=== PATIENT | female | born 1945 | race Caucasian/White ===

== ENCOUNTER → 2016-06-10 | Outpatient (CLI) | payer BC ==
[~2016-06-10] MED LIST: CETI10TA84 PO; CYAN500T13 PO
--- NOTE | 2016-06-11 06:01 | PAP/PSG TECHNICIAN REPORT ---
[facility] Color Room Attendant Polysomnogram Report Study name: None Report date: 06/11/2016 Study date: 06/10/2016 Referring Physician: DR. KIMBERLI CUEVA Name: PAULY MICHELE Interpreting Physician: Abdoulaye Cox D.O. Date of : 1945 Color Room Attendant: Blanca House RPSAARON. Sex: Female Age: 70 Study Type: PSG Weight: 172 lbs Height: 70 years, Height 5' 4" BMI: 29.52 Medications: ALEVE 220 MG, CALCIUM +D, CLARITIN, ERYTHROMYCIN 5 MG/GM, MOMETASONE FUROATE 50 MCG/ACT, VIT B-12 Patient History 70 yr-old female here for a baseline/split study. She has a history of witnessed apneas, snoring, and some daytime sleepiness. Her [place] scale is 10. The test was started on room air. ETCO2 testing was not utilized during this study. Room 3 Parameters Monitored NPSG: E1-M2, E2-M1, Fp1-M2, Fp2-M1, F3-M2, F4-M2, F4-M1, C3-M2, C4-M2, C4-M1, O1-M2, O2-M2, O2-M1, T3-M2, T4-M1, P3-M2, P4-M1, CHIN1, CHIN2, HR, EKG, Legs, PFLOW, SNOR, FLOW, CFLOW, Tidal Volume, THOR, ABDO, SpO2, PLTH, CPRESS, ETCO2 Wave, ETCO2, pH Sleep Architecture Sleep Stages Time at Lights Off 10:36:24 PM STAGES Time (min.) TST (%) Time at Lights On 5:20:54 AM Wake 85.0 -- Total Recording Time (TRT) 404.50 min. N1 55.5 17 Total Sleep Period (TSP) 362.5 min. N2 184.0 58 Total Sleep Time (TST) 319.5min. N3 34.5 11 Awake Time 85.0 min. REM 45.5 14 Wake after Sleep Onset 43.0 min. Sleep Efficiency (SE) 79 % Sleep Onset Latency (JHONY) 42.0 min. Number of Stage 1 Shifts None Awakenings 21 Stage Changes 105 Number of REM periods 7 REM 45.5 14 REM Latency 52.5 min. NREM 274.0 86 Body Position Analysis Supine Right Left Side Prone Vertical Total Sleep Time (min.) 115.6 110.0 135.5 245.53 0.0 0.0 Total Sleep Time (%) 23% 34% 42% 77 0% N/A% Total Sleep Time REM (min.) 20.5 16.0 9.0 None 0.0 0.0 Total Sleep Time NREM (min.) 53.5 94.0 126.5 None 0.0 0.0 Intermittent Wake (min.) 41.7 16.5 26.8 None 0.0 0.0 Total Sleep Period (%) 21% None None None None None Arousals Myoclonus (PLM) * Events Count Index Events Count Index Spontaneous 21 4 Events Awake (PLMW) 119 84.0 Respiratory 23 4.3 Events Asleep w/ Arousal (PLMA) 48 9.0 PLM 48 9 Events Asleep w/o Arousal (PLMS) 175 32.9 Snoring 6 1 Total Asleep 223 41.9 Total 98 18 Total 342 51 Respiratory Analysis * CA OA MA CH H RERA Total Count 0 2 0 0 29 12 31 Index 0.0 0.4 0.0 0 5.4 2 8.1 Mean Duration 0.0 22.1 0.0 0.00 24.0 17.6 22.1 Longest Duration 0.0 26.3 0.0 0.00 0.0 21.3 54.7 Respiratory Event Summary Total Supine ~Supine Right Left Prone REM NREM Apneas Count 2 2 0 0 0 N/A 1 1 Index 0.4 2 0 0.0 0.0 N/A 1 0 Hypopneas (4% Desat) Count 29 24 5 5 0 N/A 15 14 Index 5.4 19.5 1 2.7 0.0 N/A 19.8 3.1 Apneas & All Hypopneas Count 31 26 5 5 0 N/A 16 15 Index 5.8 21 1 3 0 N/A 21.1 3.3 Respiratory Events (Housekeeping Attendant+All Hyp+RERA) Count 31 33 10 5 5 N/A 16 15 Index 8.1 27 2 2.7 2.2 N/A 23.7 5.5 Respiratory Related Arousal Count 23 33 7 2 5 N/A 6 17 Index 4.3 13 2 1 2 N/A 8 4 Snoring Analysis Supine Right Left Prone REM NREM Total Snore duration 7.7 min Snores count 110 17 168 N/A 28 267 295 Snore mean duration 1.6 Sec Snores index 89 9 74 N/A 36.9 58.5 55.4 TST with snoring (%) 2.4% Desaturation Event Summary: Minimum %SpO2 Event Count Mean/Min/Max Duration(sec.) Desaturation Index % Time In Bed > 90 32 31.8 / 8.0 / 56.0 17.6 27.3 86 - 90 31 34.0 / 8.8 / 60.0 6.6 70.6 81 - 85 2 18.6 / 13.8 / 23.5 14.5 2.1 76 - 80 0 N/A 0.0 0.0 71 - 75 0 N/A 0.0 0.0 66 - 70 0 N/A 0.0 0.0 61 - 65 0 N/A 0.0 0.0 56 - 60 0 N/A 0.0 0.0 51 - 55 0 N/A 0.0 0.0 < 50 0 N/A 0.0 0.0 Total REM NREM Awake <50% 0.0 min. 0.0 min. 0.0 min. 0.0 min. 51 - 60% 0.0 min. 0.0 min. 0.0 min. 0.0 min. 61 - 70% 0.0 min. 0.0 min. 0.0 min. 0.0 min. 71 - 80% 0.0 min. 0.0 min. 0.0 min. 0.0 min. 81 - 90% 290.9 min. 33.7 min. 214.1 min. 43.1 min. 91 - 100% 109.1 min. 11.8 min. 59.9 min. 37.4 min. Average 90 89 89 91 Minimum SpO2 81 81 84 86 Desaturation Event Index 7.4 25.1 4.2 9.9 # Desat. Events below 89% 40 18 16 6 Time(%) with Saturation below 89% 20.7 4.4 15.1 1.2 Time(min.) with Saturation below 89% 82.9 17.8 60.3 4.8 Time (mins) REM (mins) NREM (mins) % of TST SpO2 Below 90% 36 18 N18 52.0 SpO2 Below 88% 20 0 0 12 Heart Rate Analysis Min (bpm) Max (bpm) Average (bpm) Awake 52 91 68 NREM 51 82 60 REM 54 89 64 Overall 51 89 61 Supplemental O2 Values Minimum O2 level: None Value Start Time End Time Color Room Attendant Comments Ms. Michele slept in the right, left, and supine positions. No cardiac arrhythmias were noted. PLMs were noted. No bruxism noted. Snoring was noted and scored as a 2 on a scale of 1 through 5. (0=no snoring, 5=snoring loud enough to be heard through a closed door or down the ruggiero way). She did not meet specific Split-Night criteria during the diagnostic portion of this study. She awoke to use the restroom one time during the night. Ms. Michele stated that she did not sleep as well as usual. The final report will be interpreted and signed by a sleep physician. The completed physician report will then be placed in the patient medical record. Therapy (cm H2O) 0 TIB (min.) 404.5 TST (min.) 319.5 Sleep Onset (min.) 42.0 REM Onset From Sleep (min.) 52.5 Sleep Efficiency % 79 Wakefulness (%) 21 Wakefulness (min.) 85.0 NREM 1 (%) 17 NREM 1 (min.) 55.5 NREM 2 (%) 58 NREM 2 (min.) 184.0 NREM 3 (%) 11 NREM 3 (min.) 34.5 REM (%) 14 REM (min.) 45.5 # Arousals 98 Arousal Index 18 # Snore 295 Snore Index 55.4 AHI 5.8 AHI Supine 21 AHI Non-Supine 1 NREM AHI 3.3 REM AHI 21.1 RDI 8.1 # Obstructive Apnea 2 # Central Apnea 0 # Mixed Apnea 0 # Hypopneas 29 RERAs 12 Total Respiratory Events 43 Time Below SpO2 89% (min.) 78.1 Mean NREM SpO2 (%) 89 Mean REM SpO2 (%) 89 Mean Sleep SpO2 (%) 89 Min NREM SpO2 (%) 84 Min REM SpO2 (%) 81 Position Supine (min.) 115.6 Position Non-supine (min.) 245.5 LM Index Sleep 41.9 LM Index NREM 41.2 LM Index REM 46.2 Mean Heart Rate (bpm) 61 Min Heart Rate (bpm) 51
--- NOTE | 2016-06-15 19:03 | POLYSOMNOGRAPH REPORT ---
CLINICAL DATA: The patient is a 70-year-old female who was referred for a diagnostic in-lab sleep study. She has a history of snoring, observed apneas, and daytime sleepiness. Her [place] sleepiness score is 10 out of a possible 24. Her BMI is mildly elevated at 29.52. SLEEP ARCHITECTURE: The total sleep period was 362.5 minutes with a total sleep time of 319.5 minutes. The sleep efficiency was 79%. The sleep latency was prolonged at 42 minutes. The REM latency was 52.5 minutes. Sleep consisted of 17% stage N1, 58% stage N2, 11% stage N3, and 14% REM sleep. AROUSAL DATA: The patient had a total of 98 arousals including 21 spontaneous, 23 respiratory, 48 PLM, 6 snoring, and the arousal index was 18. PERIODIC LIMB MOVEMENTS DATA: The patient had a total of 223 periodic limb movements of sleep for an index of 41.9. The PLM arousal index was 9.0. ELECTROCARDIOGRAM: The cardiac rates ranged from 51-91 beats per minute. No cardiac arrhythmias were noted. RESPIRATORY DATA: The patient had a total of 31 respiratory events including 2 obstructive apneas and 29 hypopneas. The apnea hypopnea index is minimally elevated at 5.8 events per hour. OXIMETRY DATA: The patient had a lowest oxygen saturation of 81%. There was a total of 82.9 minutes with saturations less than 89%. The lowest saturations occurred during REM sleep and in the supine position. HEAD OF IT'S COMMENTS: The patient slept in the right, left, and supine positions. PLMs were noted. No bruxism was noted. Snoring was noted and scored as a 2 on a scale of 1 through 5. IMPRESSION: 1. Obstructive sleep apnea - mild. 2. Periodic limb movement disorder. COMMENTS: The patient has very mild sleep apnea. The apnea hypopnea index of 5.8 would be slightly above normal. It was, however, associated with oxygen desaturations. It is unknown if patient has other underlying pulmonary problems. Most of the desaturations and events occurred when patient was supine and in REM sleep. It is unknown if she has a history of restless legs either during the day or at night time. RECOMMENDATIONS: 1. Consideration could be given to a trial of nasal CPAP. This could be accomplished by a CPAP titration study or by auto CPAP. 2. An alternative to treatment with nasal CPAP therapy could be consideration of an oral appliance if desired and if patient is a candidate. 3. It is suggested that she avoid sleeping in the supine position. 4. The patient has mild elevation of body mass index. A weight reduction program is suggested as even modest weight reduction may result in some improvement in sleep disordered breathing. 5. Clinical correlation is required to determine if treatment is necessary or indicated for the underlying limb movement disorder.
== END | disposition home or self-care (01) ==
LOC: C.NEUR 21:00
DX: G47.33 Obstructive sleep apnea (adult) (pediatric) (principal)

== ENCOUNTER → 2016-06-12 | Outpatient (CLI) | payer BC ==
[2016-06-12 10:19] LABS: ALT/SGPT 22 U/L (12-78); AST/SGOT 12 U/L (15-37); BLOOD UREA NITROGEN 16 mg/dl (7-18); BUN/CREATININE RATIO 17.6 (10-20); CALCIUM 9.2 mg/dl (8.5-10.1); CARBON DIOXIDE 29 mmol/L (21-32); CHLORIDE 108 mmol/L (98-107); CREATININE 0.88 mg/dl (0.60-1.20); GLUCOSE 91 mg/dl (70-99); POTASSIUM 4.2 mmol/L (3.5-5.1); SODIUM 144 mmol/L (136-145)
[2016-06-12 10:22] LABS: ALB/GLOB RATIO 1.1 (0.9-2); ALKALINE PHOSPHATASE 53 U/L (45-117); CHOLESTEROL 266 mg/dl (0-200); CHOLESTEROL/HDL RATIO 3.3; HDL CHOLESTEROL 80 mg/dl; LDL CHOLESTEROL CALCULATED 168 mg/dl; TRIGLYCERIDES 92 mg/dl (0-150); VERY LOW DENSITY LIPOPROT CALC 18 mg/dl
[2016-06-12 10:35] LABS: ESTIMATED AVERAGE GLUCOSE 120 mg/dl; HA1C FLAG Normal (Normal)
== END | disposition home or self-care (01) ==
LOC: C.LAB 06:00
PROVIDERS: ATTEND Family Medicine
DX: R73.9 Hyperglycemia, unspecified (principal); E78.00 Pure hypercholesterolemia, unspecified

== ENCOUNTER → 2017-05-14 | Outpatient (CLI) | payer BC ==
[2017-05-14 11:08] LABS: ESTIMATED AVERAGE GLUCOSE 117 mg/dl; HA1C FLAG Normal (Normal)
[2017-05-14 11:12] LABS: BASO % 0.4 %; BASO ABS # 0.02 K/uL (0-0.2); COMPLETE YES; EOS % 7.3 %; HEMATOCRIT 40.4 % (37-47); IG% 0.2 %; LYMPH % 32.2 %; LYMPH ABS # 1.59 K/uL (1.2-3.4); MEAN CELL VOLUME 90.8 fL (80-100); MEAN CORPUSCULAR HEMOGLOBIN 30.3 pg (25-34); MEAN CORPUSCULAR HGB CONC 33.4 g/dl (32-36); MEAN PLATELET VOLUME 10.4 fL (7.4-10.4); MONO % 6.9 %; PLATELET COUNT 249 K/uL (130-400); RED BLOOD COUNT 4.45 M/uL (4.2-5.4); WHITE BLOOD COUNT 4.94 K/uL (4.8-10.8)
[2017-05-14 11:25] LABS: ALT/SGPT 24 U/L (12-78); AST/SGOT 13 U/L (15-37); BLOOD UREA NITROGEN 18 mg/dl (7-18); BUN/CREATININE RATIO 23.6 (10-20); CALCIUM 8.9 mg/dl (8.5-10.1); CARBON DIOXIDE 26 mmol/L (21-32); CHLORIDE 109 mmol/L (98-107); CREATININE 0.75 mg/dl (0.60-1.20); GLUCOSE 100 mg/dl (70-99); POTASSIUM 4.2 mmol/L (3.5-5.1); SODIUM 138 mmol/L (136-145)
[2017-05-14 11:28] LABS: ALB/GLOB RATIO 0.9 (0.9-2); ALKALINE PHOSPHATASE 56 U/L (45-117); CHOLESTEROL 178 mg/dl (0-200); CHOLESTEROL/HDL RATIO 2.3; HDL CHOLESTEROL 76 mg/dl; LDL CHOLESTEROL CALCULATED 86 mg/dl; TRIGLYCERIDES 78 mg/dl (0-150); VERY LOW DENSITY LIPOPROT CALC 16 mg/dl
== END | disposition home or self-care (01) ==
LOC: C.LABBC 07:37
PROVIDERS: ATTEND Nurse Practitioner Adult Health
DX: Z00.00 Encounter for general adult medical examination without abnormal findings (principal); E78.00 Pure hypercholesterolemia, unspecified; R73.9 Hyperglycemia, unspecified

== ENCOUNTER → 2017-08-23 | Outpatient (CLI) | payer BC ==
--- NOTE | 2017-08-23 13:58 | MAMMOGRAPHY REPORT ---
BILATERAL DIGITAL SCREENING MAMMOGRAM TOMOSYNTHESIS WITH CAD: 08/23/2017 CLINICAL HISTORY: Routine screening. Patient has no complaints. TECHNIQUE: Breast tomosynthesis in addition to standard 2D mammography was performed. Current study was also evaluated with a Computer Aided Detection (CAD) system. COMPARISON: Comparison is made to exams dated: 12/19/2014 mammogram, 12/07/2013 mammogram, 10/27/2011 ul trasound, 10/27/2011 mammogram, 11/20/2009 aspiration, and 11/05/2009 mammogram - [facility] enter. BREAST COMPOSITION: There are scattered areas of fibroglandular density in both breasts. FINDINGS: No suspicious masses, calcifications, or areas of architectural distortion are noted in ei ther breast. Bilateral subpectoral silicone implants are noted. IMPRESSION: ACR BI-RADS CATEGORY 2: BENIGN There is no mammographic evidence of malignancy. A 1 year screening mammogram is recommended. The pa tient will receive written notification of the results. Approximately 10% of breast cancers are not detected with mammography. A negative mammographic report should not delay biopsy if a clinically suggestive mass is present. Ana Lilia Ochoa M.D. /:08/23/2017 12:09:32 Harvesting Manager: Angelina GARVIN(Ellen)(M), [facility] letter sent: Normal 1/2 BI-RADS Code: ACR BI-RADS Category 2: Benign
== END | disposition home or self-care (01) ==
LOC: C.MAMM 10:02
PROVIDERS: ATTEND Nurse Practitioner Adult Health
DX: Z12.31 Encounter for screening mammogram for malignant neoplasm of breast (principal)

== ENCOUNTER 2019-04-25 06:25 | Inpatient (IN) ==
--- NOTE | 2019-04-05 13:05 | PAT Medication Instructions ---
Medication Instructions Date of Service April 05, 2019 Home Medications atorvastatin 20 mg PO QAM 07/26/18 [History Confirmed 03/31/19] mometasone 2 spray INTRANASAL BID 07/26/18 [History Confirmed 03/31/19] Pepcid 1 dose PO UD PRN 03/31/19 [History Confirmed 03/31/19] Vitamin B12 1 dose PO DAILY 03/31/19 [History Confirmed 03/31/19] calcium carbonate [Calcium 500] 500 mg PO DAILY 03/31/19 [History Confirmed 03/31/19] cetirizine 10 mg PO DAILY 03/31/19 [History Confirmed 03/31/19] ibuprofen [Advil] 200 mg PO UD PRN 03/31/19 [History Confirmed 03/31/19] ASK your surgeon for instructions ibuprofen [Advil] 200 mg PO UD PRN 03/31/19 [History Confirmed 03/31/19] DO NOT take the morning of surgery Pepcid 1 dose PO UD PRN 03/31/19 [History Confirmed 03/31/19] Vitamin B12 1 dose PO DAILY 03/31/19 [History Confirmed 03/31/19] calcium carbonate [Calcium 500] 500 mg PO DAILY 03/31/19 [History Confirmed 03/31/19] cetirizine 10 mg PO DAILY 03/31/19 [History Confirmed 03/31/19] Take morning of surgery With a small sip of water, OTHERWISE NOTHING TO EAT OR DRINK AFTER MIDNIGHT: atorvastatin 20 mg PO QAM 07/26/18 [History Confirmed 03/31/19] mometasone 2 spray INTRANASAL BID 07/26/18 [History Confirmed 03/31/19] Other Notes If you have any questions please call us at [phone] or [phone] or [phone] or [phone]
--- NOTE | 2019-04-06 08:24 | Anesthesiology Consultation ---
Date of Service April 06, 2019 Assessment & Plan (1) Encounter for pre-operative examination: Chart Review Chart Review: Pending: Refer to Additional Notes / Consult section (pending preop testing (labs, CXR)) and Patient seen in Pre Admission Testing Teaching & Discussion Pre-Anesthesia Teaching/Discussion Notes: Instructed NPO after midnight before surgery,except medications with 15 cc of water. Medication instructions provided according to the PAT guidelines. History Surgery Operation Date: 04/25/19 10:40 Proposed Procedures p Left Total Knee Arthroplasty - Luis Brantley MD Height/Weight Height: 5 ft 3 in Weight: 81.6 kg Allergies Allergy/AdvReac Type Severity Reaction Status Date / Time Sulfa (Sulfonamide Allergy Unknown unknown Verified 04/06/19 08:24 Antibiotics) reaction (childhood) SCALLOPS Allergy Unknown face Uncoded 04/06/19 08:24 "breaks out" Medications Home Medications Medication Instructions Recorded Confirmed Last Taken atorvastatin 20 mg PO QAM 07/26/18 03/31/19 Unknown mometasone 2 spray INTRANASAL BID 07/26/18 03/31/19 Unknown Pepcid 1 dose PO UD PRN 03/31/19 03/31/19 Unknown Vitamin B12 1 dose PO DAILY 03/31/19 03/31/19 Unknown calcium carbonate [Calcium 500] 500 mg PO DAILY 03/31/19 03/31/19 Unknown cetirizine 10 mg PO DAILY 03/31/19 03/31/19 Unknown ibuprofen [Advil] 200 mg PO UD PRN 03/31/19 03/31/19 Unknown Past Medical History Medical History High cholesterol Osteoarthritis Seasonal allergies Exercise / Class Metabolic Activity II 4-5 Yardwork/Stairs/Walk up hill Past Family History Family History Other Pre-diabetes Past Surgical History Surgical History History of arthroscopy of left knee History of bilateral breast implants AND REVISION History of colonoscopy History of hysterectomy Past Anesthesia History No Family Hx of Anesthesia Complications and Other "Slow to wake." No known hx reintubation. History of PONV No Hx of PONV and Hx of Motion Sickness (rare) Social History Smoking Status: Never smoker Do You Dip or Chew Tobacco: No Hx Alcohol Use: Yes Alcohol type: wine and hard liquor alcohol intake frequency: 0-2 drinks per day (2 glasses wine/day) Alcohol Intake Frequency Comment: WINE DAILY Hx Substance Use: No substance use type: does not use Review of Systems Patient denies chest pain, shortness of breath, dyspnea on exertion, cough, wheezing, palpitations. Physical Exam Vital Signs VITALS BP 125/88 P 80 TEMP 98.2 SP02 95%RA RESP 16 PHYSICAL Full neck and c-spine range of motion. Full TMJ range of motion. TMD 3 finger breaths Mallampati Score 2 Dentition: intact, single implant upper front right, several crowns "all over" Lungs: clear throughout to auscultation Cardiac: regular rate and rhythm, no murmurs noted Spine: normal Carotid arteries: negative bruit Extremities: no edema Testing Electrocardiogram Date: 07/26/18 NSR at 83bpm. Possible anterior infarct, age undetermined. NS TWA. No significant change compared to 03/13/14.
--- NOTE | 2019-04-06 09:05 | XRay Report ---
XR chest Pre-admission PA/Lat CLINICAL HISTORY: Preoperative chest COMPARISON STUDY: March 2014 FINDINGS: The heart is normal in size. There is minor elevation/eventration right hemidiaphragm. Ther e is no failure. There is no focal pulmonary consolidation. There are no pleural effusions.[ IMPRESSION: No active disease in the chest. Electronically signed by: Mina Ramachandran M.D. 04/06/2019 9:04 AM
[2019-04-06 10:29] LABS: Basophils # (auto) 0.02 K/uL (0-0.2); Basophils % (auto) 0.4 %; Eosinophils # (auto) 0.35 K/uL (0-0.5); Eosinophils % (auto) 7.5 %; Hematocrit (blood only) 38.8 % (37-47); Hemoglobin 12.9 g/dL (12.0-16.0); Immature Granulocytes # (auto) 0.02 K/uL (0.00-0.02); Immature Granulocytes % (auto) 0.4 %; Lymphocytes # (auto) 1.57 K/uL (1.2-3.4); Lymphocytes % (auto) 33.5 %; Mean Corpuscular Hemoglobin 30.2 pg (25-34); Mean Corpuscular Hgb Conc 33.2 g/dL (32-36); Mean Corpuscular Volume 90.9 fL (80-100); Mean Platelet Volume 10.2 fL (7.4-10.4); Monocytes # (auto) 0.31 K/uL (0.11-0.59); Monocytes % (auto) 6.6 %; Neutrophils # (auto) 2.41 K/uL (1.4-6.5); Neutrophils % (auto) 51.6 %; Platelet Count 234 K/uL (130-400); RDW Coefficient of Variation 13.2 % (11.5-14.5); RDW Standard Deviation 43.5 fL (36.4-46.3); Red Blood Count 4.27 M/uL (4.2-5.4); White Blood Count 4.68 K/uL (4.8-10.8)
[2019-04-06 10:35] LABS: BUN Creatinine Ratio 28.2 (10-20); Calcium 9.1 mg/dl (8.5-10.1); Creatinine Clr Calc Pharmacy 69.4 ml/min; Est GFR (African American) 94.7; Est GFR (Non-African American) 81.7; Potassium 3.9 mmol/L (3.5-5.1)
[2019-04-06 10:44] LABS: Partial Thromboplastin Time 27.3 Seconds (21.0-31.0); Prothrombin Time 10.1 Seconds (9.0-12.0)
--- NOTE | 2019-04-22 10:47 | History and Physical Report ---
DATE OF ADMISSION: 04/25/2019 CHIEF COMPLAINT: Persistent left knee pain and discomfort. HISTORY OF PRESENT ILLNESS: The patient is a 73-year-old very active female who presents for surgical treatment of her left knee. She had a long history of left knee problems and had her left knee scoped by Dr. Cazares about 5 years ago. It helped her to some degree. Her pain just gradually gotten worse over the past several years. She is very active and enjoys playing pickleball as well as tennis but unable to do this due to her knee pain and discomfort. Any activity causes need to swell. She has been through extensive conservative treatment including anti-inflammatories which provide minimal relief. She has had steroid shots and viscosupplementation without adequate relief. She would like to have her left knee fixed. PAST MEDICAL HISTORY: Past medical history consists of 1. Elevated cholesterol. 2. Arthritis. PAST SURGICAL HISTORY: Includes: 1. Left knee arthroscopy 5 years ago. ALLERGIES: SULFA AND POLLEN. CURRENT MEDICINES: Include: 1. Atorvastatin 20 mg. 2. Mometasone nasal spray 2 sprays each nostril twice a day. 3. Cetirizine 10 mg daily. 4. Vitamin B12. 5. Calcium with D. 6. Ibuprofen. 7. Aspercreme with lidocaine topically. SOCIAL HISTORY: A 73-year-old female. She is . A 14 drinks per week, mostly of wine. No tobacco use. She works as a financial counselor. FAMILY HISTORY: Noncontributory. REVIEW OF HISTORY: Negative for diabetes, neurologic problem, vascular problem, bleeding disorders. Denies any chest pain or shortness of breath. No history of DVT or PE. No known bleeding problems. PHYSICAL EXAMINATION: GENERAL: Shows a healthy, pleasant middle-aged female who looks to be in excellent health. HEENT: Benign. NECK: Supple, no lymphadenopathy. LUNGS: Clear to auscultation. HEART: Has a regular rate and rhythm. ABDOMEN: Soft, nontender, nondistended. EXTREMITIES: Grossly neurovascularly intact except as follows. Examination of the left knee reveals patient ambulates with little bit of a limp. She has got slight varus alignment to her knee. She has got well-healed portal sites around the knee. Small knee effusion. Range of motion about 5 degrees short of full extension to 125 degrees of flexion. There is no clinical instability. No pain with hip motion. X-RAYS: X-rays of the left knee reviewed. Shows advanced left knee medial compartment DJD. She has got complete loss of her medial joint space. She has got osteophytes off the medial femoral condyle and medial tibial plateau. ASSESSMENT: A 73-year-old female with history of knee arthroscopy in the past with advanced medial compartment degenerative joint disease. She has failed conservative treatment affecting her quality of life and she would like to have her knee fixed. PLAN: We will take her to the operating room and do a left total knee replacement. The risks and benefits of this procedure were explained to the patient including but not limited to DVT, PE, , infection, neurological injury, vascular injury, bleeding problem, pain, limited range of motion, stiffness, failure to relieve symptoms, incomplete relief of symptoms, need for further surgery in future, fracture, leg length inequality, nerve palsy, persistent pain, etc. The patient understands and desires to proceed. Informed consent was obtained. As far as discharge plans, she is planning to be discharged home using [facility] home health program. Her can assist in her care.
[~2019-04-25 06:25] MED LIST changes: +ACETAMINOPHEN 500 MG TAB PO SCH; +BUPIVACAINE LIPOSOME/PF 266 MG, BUPIVACAINE/EPINEPHRINE 50 ML, SODIUM CHLORIDE 0.9% 30 ... INFIL SCH; +CEFAZOLIN 2000MG 2,000 MG/15 ML SYR IV SCH; -CETI10TA84 PO; -CYAN500T13 PO; +FAMOTIDINE 20 MG TAB PO SCH; +GABAPENTIN 300 MG CAP PO SCH; +LR 500ML BOLUS, THEN 15ML/HR IV SCH; +LR 60ML/HR IV SCH; +METOCLOPRAMIDE HCL 10 MG TABLET PO SCH; +SCOPOLAMINE 1.5 MG TDSY TD SCH
[2019-04-25] MEDS ORDERED: ROPIVACAINE 0.5% 5 MG/ML 30 ML VIAL ONE (06:26)
[2019-04-25] MEDS ORDERED: BUPIVACAINE 0.5 % 5 MG/1 ML PF 10ML VIAL ONE (06:26)
[2019-04-25] MEDS ORDERED: EPINEPHrine INJ 1 MG/ML AMP ONE (06:27)
--- NOTE | 2019-04-25 06:53 | History & Physical Bridge Note ---
Date of Service April 25, 2019 History & Physical Bridge Note I have examined the patient, reviewed the History & Physical and in the interval since the performance of the History & Physical I have noted the following changes of clinical significance: no changes noted
[2019-04-25] MEDS ORDERED: fentaNYL citrate 100 MCG/2 ML VIAL ONE (07:23)
[2019-04-25] MEDS ORDERED: MIDAZOLAM HCL 1 MG/ML 2ML VIAL ONE (07:23)
[2019-04-25] MEDS ORDERED: BUPIVACAINE/EPINEPHRINE 0.25% 1:200,000 30 ML VIAL ONE (08:27)
[2019-04-25] MEDS ORDERED: BUPIVACAINE LIPOSOME 1.3% 266 MG/20 ML VIAL ONE (08:27)
[2019-04-25] MEDS ORDERED: BACITRACIN INJ 50,000 UNIT VIAL ONE (08:27)
[2019-04-25] MEDS ORDERED: SODIUM CHLORIDE 0.9% PF 50 ML VIAL ONE (08:27)
[2019-04-25] MEDS ORDERED: ONDANSETRON INJ 2 MG/ML 2 ML VIAL ONE ×2 (09:00→10:15)
[2019-04-25] MEDS ORDERED: LIDOCAINE HCL 2% 2 ML VIAL/AMP(20MG/ML) INFIL ONE (09:00)
[2019-04-25] MEDS ORDERED: TRANEXAMIC ACID 1,000 MG in 0.9 % SODIUM CHLORIDE 100 ML IV ONE (09:00)
[2019-04-25] MEDS ORDERED: DEXAMETHASONE SOD INJ 4 MG/ML VIAL ONE (09:00)
[2019-04-25] MEDS ORDERED: PHENYLEPHRINE 100MCG/ML 5ML SYR ONE (09:00)
[2019-04-25] MEDS ORDERED: PROPOFOL IV EMULSION 10 MG/ML 20 ML VIAL IV ONE (09:00)
[2019-04-25] MEDS ORDERED: HYDROmorphone INJ 2 MG/ML SYR/VIAL ONE (09:01)
[2019-04-25] MEDS ORDERED: ePHEDrine sulfate 50 MG/ML SYR ONE (09:11)
--- NOTE | 2019-04-25 10:29 | Post Operative Brief Note ---
PG Immediate Post Op with CF Date of Surgery April 25, 2019 Pre & Post Diagnosis Operation Date: 04/25/19 08:50 Pre-Op Diagnosis: Left Knee Advanced Degenerative Joint Disease Post-Op Diagnosis: Left Knee Advanced Degenerative Joint Disease I identified the patient and participated in the time-out.: Yes Procedure Operation Date: 04/25/19 08:50 Actual Procedures p Left Total Knee Arthroplasty(Left) - Luis Brantley MD Surgeon Luis Brantley MD Aircraft Armorer Kathy, PAC Estimated Blood Loss 50 Findings Consistent with Post-Op Diagnosis Fluids 1000 cc Specimens Specimen Description: A. Left knee bone and tissue. Drains Saunders Catheter (A 16 Maltese saunders catheter was inserted by DELMER Marin, without difficulty, clear yellow urine obtained, output to be monitored by Anesthesia.) Anesthesia Type General Regional Complications none Disposition Accompanied Patient To Recovery: No Disposition: Recovery Room
[2019-04-25] MEDS ORDERED: NALOXONE HCL 0.4 MG/1 ML VIAL/CARP IV PRN ×2 (10:34→11:37)
[2019-04-25] MEDS ORDERED: ePHEDrine sulfate 50 MG/ML AMP IV PRN (10:34)
[2019-04-25] MEDS ORDERED: LABETALOL HCL IV 5 MG/ML 20ML IV PRN (10:34)
[2019-04-25] MEDS ORDERED: HYDROmorphone INJ 1 MG/ML SYRINGE IV PRN (10:34)
[2019-04-25] MEDS ORDERED: ATROPINE SULFATE 0.1 MG/ML 10ML SYR IV PRN (10:34)
[2019-04-25] MEDS ORDERED: ONDANSETRON INJ 2 MG/ML 2 ML VIAL IV PRN ×2 (10:34→11:37)
[2019-04-25] MEDS ORDERED: FLUMAZENIL 0.1 MG/1 ML 10 ML VIAL IV PRN (10:34)
[2019-04-25] MEDS ORDERED: PROMETHAZINE HCL 12.5 MG in SODIUM CHLORIDE 0.9% 50 ML IV PRN (10:34)
--- NOTE | 2019-04-25 11:01 | XRay Report ---
XR knee LT 1 or 2V routine HISTORY: 73 years-old Female Surgical Post Op [knee total joint arthroplasty COMPARISON: Knee radiographs 03/17/2019 TECHNIQUE: 2 views of the left knee FINDINGS: Left knee total joint arthroplasty and patella resurfacing. Anterior midline skin andriy are noted a long with expected postsurgical soft tissue swelling and deep tissue air with surgical drainage kameron ter. Satisfactory alignment without acute fracture or retained foreign body. IMPRESSION: Satisfactory alignment of the left knee total joint arthroplasty. The above report was generated using voice recognition software. It may contain grammatical, syntax o r spelling errors. Electronically signed by: Yash Driver M.D. 04/25/2019 10:59 AM
--- NOTE | 2019-04-25 11:13 | Anesthesiology Progress Note ---
Date of Service April 25, 2019 Anesthesia Post Procedure Vital Signs Vital Signs: Temp Pulse Pulse Resp BP BP Pulse Ox 04/25/19 11:05 90 17 94/70 L 95 04/25/19 10:55 95 H 16 111/59 L 94 04/25/19 10:45 103 H 13 138/79 93 04/25/19 10:36 36.3 C L 100 H 19 113/71 94 04/25/19 07:21 36.4 C L 81 18 136/75 93 Transfer of Care Handoff Completed per policy Notes Mental Status: alert / awake / arousable Patient Amnestic to Procedure: Yes Nausea / Vomiting: adequately controlled Pain: adequately controlled Airway Patency, RR, SpO2: stable & adequate BP & HR: stable & adequate Hydration State: stable & adequate Anesthetic Complications: no major complications apparent
[2019-04-25] MEDS ORDERED: MAGNESIUM HYDROXIDE SUSP 30 ML UDC PO PRN (11:37)
[2019-04-25] MEDS ORDERED: HYDROmorphone INJ 0.5 MG/0.5 ML SYR IV PRN (11:37)
[2019-04-25] MEDS ORDERED: FAMOTIDINE 20 MG TAB PO PRN (11:37)
[2019-04-25] MEDS ORDERED: bisacodyL 10 MG SUPP PR PRN (11:37)
[2019-04-25] MEDS ORDERED: METOCLOPRAMIDE HCL INJ 5 MG/ML 2 ML VIAL IV PRN (11:37)
[2019-04-25] MEDS ORDERED: ALUMINUM/MAGNESIUM SUSP 30 ML UDC PO PRN (11:37)
[2019-04-25] MEDS: SODIUM CHLORIDE 0.9% 1000ML 1,000 ML IV SCH ×2 (12:00→21:30)
[2019-04-25] MEDS: KETOROLAC TROMETHAMINE 15 MG/ML VIAL IV SCH ×3 (12:54→23:18)
[2019-04-25] MEDS: ACETAMINOPHEN 500 MG TAB PO SCH ×2 (14:39→21:30)
[2019-04-25] MEDS: CHECK SCOPOLAMINE PATCH PLACEMENT SCH ×2 (15:57→23:19)
[2019-04-25] MEDS ORDERED: TRANEXAMIC ACID 1,000 MG in 0.9 % SODIUM CHLORIDE 100 ML IV SCH (16:30)
[2019-04-25] MEDS: CEFAZOLIN 2000MG 2,000 MG/15 ML SYR IV SCH (18:18)
[2019-04-25] MEDS: ASCORBIC ACID 500 MG TAB PO SCH (18:19)
[2019-04-25] MEDS: FERROUS GLUCONATE 324 MG TAB PO SCH (18:19)
--- NOTE | 2019-04-25 18:57 | Operative Report ---
Post Operative Report Pre & Post Diagnosis Operation Date: 04/25/19 08:50 Pre-Op Diagnosis: Left Knee Advanced Degenerative Joint Disease Post-Op Diagnosis: Left Knee Advanced Degenerative Joint Disease I identified the patient and participated in the time-out.: Yes Procedure Operation Date: 04/25/19 08:50 Actual Procedures p Left Total Knee Arthroplasty(Left) - Luis Brantley MD Surgeon Luis Brantley MD [employer] Kathy, PAC Estimated Blood Loss 50 Findings Consistent with Post-Op Diagnosis Operative findings revealed advanced left knee DJD. She had extensive grade 4 [id number] disease of the medial compartment and more spotty changes in the patellofemoral compartment and lateral compartment. She had a varus deformity to her knee. She had osteophytes particularly in the medial femoral condyle medial tibial plateau. Fluids 1000 cc Specimens Left knee sent for pathology. Anesthesia Type General Regional Complications none Disposition Accompanied Patient To Recovery: No Disposition: Recovery Room Indications Patient is a 73-year-old very active female whose had a long history of left knee pain discomfort extensive conservative treatment over the years. She did have her knee arthroscopy done in the past which provided some temporary relief only. X-rays show progressively a left knee arthritis over time. She elected to proceed with surgical treatment. Description of Procedure Tense consisted of: 1. Biomet Vanguard size 65 left posterior stabilized femoral component. 2. Biomet Vanguard size 67 tibial tray. 3. 10 mm posterior stabilized polyethylene insert. 4. 28 x 8 all poly-patella. Patient was taken to the operating room identified and placed in the operating table supine position. Contact there is probably padded. IV about 5 by the anesthesia team. A spinal anesthetic was attempted in the holding area but unsuccessful. And abductor canal block had been provided. A general anesthetic was implemented. A Monterroso catheter was placed in sterile fashion to the left eye turn was then placed. IV antibiotics were provided. The left lower extremities and prepped draped in usual sterile fashion. The left leg was elevated exsanguinated use of an Esmarch interspace at 300 mmHg. An anterior approach to the left knee was then performed the longitudinal incision centered to the patella. Sharp passes cut through subcutaneous tissue down below the extensor mechanism. A medial parapatellar arthrotomy incision was made. Some subperiosteal dissection was carried out medially. The fat pad was resected from beneath patella tendon. Lateral patellofemoral ligament was released. Patella was subluxated laterally and the knee was flexed. The osteophytes were taken off the distal femur. The ACL and PCL were then released and the distal femur the tibia subluxated anteriorly. The external tibial alignment was then placed in the interface of the tibia and adjusted 14 mm medially. Proximal tibial cut was made to remove approximately 2 mm of bone from the most efficient aspect medial tibial plateau. The tibia was sized to a size 67. Attention down the femur. New breath distal femur to have the sharp drill bit intramedullary canal was suction. A left 5 degree valgus cutting guide was placed but this femoral cutting block was pinned in place. Distal femoral cut was made to take an additional 3 mm of bone off the distal femur. The femur was then sized to a size 60 5P we did down size this slightly. The AP cutting block was pinned parallel to the epicondylar axis which was 5 degrees of external rotation. The anterior cut, anterior chamfer, posterior cut, posterior chamfer cuts were made. Box cutting guide was placed to just slightly on the box cut was made to the knee was flexed with the remnants of the medial lateral menisci were excised. The osteophytes taken off the posterior aspect of the femur. A trial femoral component was placed. The tibial tray was pinned in maximum external rotation and the drill and stem punch were used to create defect in the proximal tip for the tibial tray. Knee was then trialed the 10 mm insert fit most appropriately. Attention drawn the patella. The patella was cleaned of all soft tissues. Patella thickness measured 20 mm in thickness was cut down to 12. Was sized to a size 28 patella. Locals were drilled for the 28 patella. The lateral osteophyte is moved. Patella button was placed. Knee was taken through range of motion patella tracked nicely with no thumbs test. Attention turned to placing the permanent components. All trial components removed. Bone plug was placed in the disc femur limit blood loss put a double batch [place]os G cement was mixed. A Biomet Vanguard size 65 left posterior bifemoral component, a Biomet size 67 tibial tray, 10 mm posterior bite polyethylene insert, 28 x 8 all poly-patella then cement placed. Knee was brought out into full extension until cement hardened. Final cement check was then performed. The pericapsular tissues were injected with a total of 100 cc of combination of 20 cc of Exparel, 30 cc normal saline, 50 cc of quarter percent Marcaine with epinephrine. Patient did receive 1 g of tranexamic acid per the tourniquet was then let down for final tourniquet time 58 minutes. Hemostasis should use electrocautery. The wounds once again irrigated. Extensor macros then closed with combination 1 PDS suture and 1 Vicryl suture in [id number] fashion. Extensor mechanism checked found to be intact the subtenons tissue then closed with 2 Dexon suture in a buried knot fashion skin was closed skin andriy. Leg was then cleaned dried and sterile dressing composed of Xeroform, 4 x 4's, sterile cast padding, Prasanth bandage were applied. Patient was then brought out of general anesthesia and transferred to the recovery room in stable condition. Patient tolerated the procedure well and there were no complications. All needle sponge counts are correct at the end the operation I attest to the content of the Intraoperative Record and any orders documented therein. Any exceptions are noted below.
[2019-04-25] MEDS: TAPENTADOL HCL ER 50 MG TABCR PO SCH (21:28)
[2019-04-25] MEDS: FLUTICASONE PROPIONATE NA SPR 16 GM BTL SCH (21:28)
[2019-04-25] MEDS: DOCUSATE SODIUM 100 MG CAP PO SCH (21:29)
[2019-04-25] MEDS: ASPIRIN 81 MG ECTAB PO SCH (21:29)
[2019-04-25] MEDS: SENNA 8.6 MG TAB PO SCH (21:30)
[2019-04-26] MEDS: CEFAZOLIN 2000MG 2,000 MG/15 ML SYR IV SCH
[2019-04-26] MEDS: OXYCODONE HCL IR 5 MG TAB (IMMEDIATE RELEASE) PO PRN ×4 (01:40→21:25)
[2019-04-26 05:44] LABS: Hematocrit (blood only) 32.9 % (37-47); Hemoglobin 10.9 g/dL (12.0-16.0); Mean Corpuscular Hemoglobin 30.4 pg (25-34); Mean Corpuscular Hgb Conc 33.1 g/dL (32-36); Mean Corpuscular Volume 91.9 fL (80-100); Mean Platelet Volume 9.9 fL (7.4-10.4); Platelet Count 216 K/uL (130-400); Red Blood Count 3.58 M/uL (4.2-5.4); White Blood Count 7.64 K/uL (4.8-10.8)
[2019-04-26] MEDS: ACETAMINOPHEN 500 MG TAB PO SCH ×3 (05:50→21:25)
[2019-04-26] MEDS: KETOROLAC TROMETHAMINE 15 MG/ML VIAL IV SCH ×4 (05:50→23:19)
[2019-04-26 06:18] LABS: BUN Creatinine Ratio 15.9 (10-20); Calcium 8.5 mg/dl (8.5-10.1); Creatinine Clr Calc Pharmacy 64.3 ml/min; Est GFR (African American) 87.4; Est GFR (Non-African American) 75.4; Potassium 3.7 mmol/L (3.5-5.1)
[2019-04-26] MEDS: TAPENTADOL HCL ER 50 MG TABCR PO SCH ×2 (08:16→20:47)
[2019-04-26] MEDS: ATORVASTATIN 20 MG TAB PO SCH (08:17)
[2019-04-26] MEDS: DOCUSATE SODIUM 100 MG CAP PO SCH ×2 (08:17→20:46)
[2019-04-26] MEDS: CYANOCOBALAMIN 500 MCG TABLET (VITAMIN B-12) PO SCH (08:17)
[2019-04-26] MEDS: MULTIVITAMIN TAB PO SCH (08:17)
[2019-04-26] MEDS: CETIRIZINE HCL 10 MG TABLET PO SCH (08:17)
[2019-04-26] MEDS: CALCIUM CARBONATE 1250MG TAB PO SCH (08:17)
[2019-04-26] MEDS: FERROUS GLUCONATE 324 MG TAB PO SCH ×2 (08:18→18:01)
[2019-04-26] MEDS: ASCORBIC ACID 500 MG TAB PO SCH ×2 (08:18→18:02)
[2019-04-26] MEDS: FLUTICASONE PROPIONATE NA SPR 16 GM BTL SCH ×2 (08:18→20:47)
[2019-04-26] MEDS: ASPIRIN 81 MG ECTAB PO SCH ×2 (08:18→20:47)
--- NOTE | 2019-04-26 17:49 | Progress Note ---
DATE: 04/26/2019 SUBJECTIVE: A 73-year-old female postop day 1 from left knee replacement. She is doing pretty well. Having some pain but manageable. No chest pain or shortness of breath. Not feeling dizzy or lightheaded. OBJECTIVE: VITAL SIGNS: Temperature 36.4. Vital signs stable. GENERAL: Shows a pleasant, middle-aged female. She is sitting up in bed, looks pretty comfortable. She was talking on the phone when I went in her room this evening. EXTREMITIES: Examination of the left leg reveals the dressing to be clean, dry and intact. She can dorsiflex and plantarflex her foot appropriately. She is neurologically intact. LABORATORY DATA: Hemoglobin is 10.9, hematocrit 32.9. Electrolytes are stable. ASSESSMENT: A 73-year-old female postop day 1 from left knee replacement, doing quite well. Pain has been reasonably well controlled. She is neurologically intact. PLAN: 1. DVT prophylaxis including thigh-high TEDs, SCDs, and aspirin twice a day. 2. PT/OT. Weight bear as tolerated. Left total knee protocol. 3. Pain control, doing pretty well with current pain regimen. 4. Disposition: Plan to discharge to home with some home health once medically stable and recovered. Likely discharge tomorrow.
[2019-04-26] MEDS: SENNA 8.6 MG TAB PO SCH (20:47)
[2019-04-27] MEDS: ACETAMINOPHEN 500 MG TAB PO SCH (04:38)
[2019-04-27] MEDS: KETOROLAC TROMETHAMINE 15 MG/ML VIAL IV SCH (05:34)
[2019-04-27] MEDS: OXYCODONE HCL IR 5 MG TAB (IMMEDIATE RELEASE) PO PRN ×2 (05:38→08:38)
--- NOTE | 2019-04-27 07:24 | Progress Note ---
DATE: 04/27/2019 SUBJECTIVE: A 73-year-old female postop day 2 from left knee replacement. Doing pretty well. Pain is reasonably well controlled. No chest pain or shortness of breath. Not feeling dizzy or lightheaded. OBJECTIVE: VITAL SIGNS: Temperature is 36.7. Vital signs stable. GENERAL: Shows a pleasant, middle-aged female. She is sitting on bed, looks reasonably comfortable. EXTREMITIES: Examination of the left leg reveals the leg to be well aligned. Dressing is clean, dry and intact. She is neurologically intact. ASSESSMENT: A 73-year-old female postop day 2 from left knee replacement, doing well. Pain is reasonably well controlled. PLAN: 1. DVT prophylaxis including thigh-high TEDs, SCDs, and aspirin twice a day. 2. PT/OT. Weight bear as tolerated. Left total knee protocol. 3. Pain control, doing well with current pain regimen. 4. Disposition: Plan to discharge to home with some home health later today.
[2019-04-27] MEDS: FERROUS GLUCONATE 324 MG TAB PO SCH (08:25)
[2019-04-27] MEDS: FLUTICASONE PROPIONATE NA SPR 16 GM BTL SCH (08:25)
[2019-04-27] MEDS: DOCUSATE SODIUM 100 MG CAP PO SCH (08:25)
[2019-04-27] MEDS: CALCIUM CARBONATE 1250MG TAB PO SCH (08:25)
[2019-04-27] MEDS: CETIRIZINE HCL 10 MG TABLET PO SCH (08:26)
[2019-04-27] MEDS: MULTIVITAMIN TAB PO SCH (08:26)
[2019-04-27] MEDS: ASCORBIC ACID 500 MG TAB PO SCH (08:26)
[2019-04-27] MEDS: ATORVASTATIN 20 MG TAB PO SCH (08:26)
[2019-04-27] MEDS: ASPIRIN 81 MG ECTAB PO SCH (08:26)
[2019-04-27] MEDS: CYANOCOBALAMIN 500 MCG TABLET (VITAMIN B-12) PO SCH (08:26)
[2019-04-27] MEDS: TAPENTADOL HCL ER 50 MG TABCR PO SCH (08:38)
--- NOTE | 2019-05-03 22:57 | Discharge Summary ---
ADMITTING PHYSICIAN AND SURGEON: Dr. Luis Brantley. ADMITTING DIAGNOSIS: Left knee degenerative joint disease. SURGERY PERFORMED: Left total knee arthroplasty. SECONDARY DIAGNOSES: Elevated cholesterol, arthritis. CONSULTS: None obtained. HISTORY AND PHYSICAL EXAMINATION: Well documented in the patient's chart. HOSPITAL COURSE: The patient was admitted on 04/25/2019, underwent total knee arthroplasty, tolerated the procedure well. There were no complications. She was transferred to the PACU postoperatively and later to the orthopedic floor for further care. She was given Ancef for antibiotic prophylaxis, DIPESH stockings, SCDs and aspirin for DVT prophylaxis. Hemoglobin, hematocrit and vital signs were monitored during her hospital stay and remained stable, did not require any blood transfusions. There were no complications. By postoperative day 2, she was tolerating a regular diet, pain was controlled with oral pain medicine. She was participating in physical therapy. By postop day 2, she was discharged home, set up with home health services. She was given printed discharge instructions as well as new prescriptions for extra strength Tylenol, aspirin and oxycodone. Continue home medicines. Continue physical therapy, weightbearing as tolerated, DIPESH stockings. Follow up approximately 2 weeks postop or sooner if there are any problems or concerns.
== END 2019-04-27 11:25 | disposition home health service (06) | DRG 470 ==
LOC: ASU 06:25 → 3E 10:33